=== PATIENT | female | born 1960 | race Two or more races ===

== ENCOUNTER → 2017-07-10 | Outpatient (CLI) | payer OTHER ==
[~2017-07-10] MED LIST: NAPR-260 PO
--- NOTE | 2017-07-10 10:44 | RADRPT ---
PROCEDURE: Right knee radiographs. CLINICAL INDICATION: Right knee pain. TECHNIQUE: Four views. Weight bearing. Frontal, lateral, oblique, and patellar view. COMPARISON: No prior studies are available for comparison. FINDINGS: There is no fracture or dislocation. The soft tissues are normal. There are degenerative changes with osteophytes arising from all 3 joint compartment margins. There is medial joint compartment narrowing and subarticular sclerosis. There is no lytic or blastic lesion. There is no radiopaque foreign body. IMPRESSION: 1. Moderate degenerative changes. 2. Otherwise unremarkable images of the right knee. RPTAT: QQ .Lavelle Blackmon MD, MD Date Time Electronically viewed and signed by .Lavelle Blackmon MD, on 07/10/2017 10:44 .R/
--- NOTE | 2017-07-11 06:42 | HKNOTE ---
DATE OF SERVICE: 07/10/2017 CHIEF COMPLAINT: Right knee pain. HISTORY OF PRESENT ILLNESS: This is a 57-year-old overweight female who is complaining of right kne e pain. She states that the pain has been chronic and has been progressively worsening. She does n ot use any assistive devices. She does not wear a brace. She has not had any previous treatment. She denies any groin or back pain. She denies any locking, catching or instability. She states tamera t the pain is mostly on the inside of her knee. She has no other complaints. PHYSICAL EXAMINATION: GAIT: Nonantalgic gait, no use of assist device. RIGHT KNEE EXAMINATION: Neutral alignment. Tender over the medial joint line, nontender over the l ateral joint line. Negative Kee, negative anterior drawer, negative posterior drawer, negative Mary's, 0 to 130 degree range of motion. MOTOR STRENGTH: 5/5 quadriceps, hamstrings, tibialis anterior, gastrocsoleus. DIAGNOSTIC DATA: X-rays: Right knee: Three views of the right knee demonstrate medial joint space narrowing. There are no marginal osteophytes. No fracture or dislocation. IMPRESSION: A 57-year-old female with right knee osteoarthritis. PLAN: I discussed treatment options including weight loss and [id number] pain medications. Rosa munoz will request authorization for physical therapy. I also discussed injection options. At this dipti e, she would like to think about possible injections in the future. She will follow up as needed. Dictated By: EMIR QUINN/CHARLES Conf#: [id number] DID#: [id number]
== END | disposition home or self-care (01) ==
LOC: MERGE 10:00 → HKI 10:18
PROVIDERS: ATTEND Orthopaedic Surgery Adult Reconstructive Orthopaedic Surgery
DX: M17.11 Unilateral primary osteoarthritis, right knee (principal)
CPT/HCPCS: 73564; Z7500; G0463